=== PATIENT | male | born 1970 | race African-American/Black ===

== ENCOUNTER 2019-06-24 01:26 | Inpatient (IN) | payer OTHER | END 2019-06-29 18:46 | disposition home or self-care (01) | LOC: ER 01:26 → CENTRAL 06-27 17:58 → TELE 01:27 → TELE-CENTR 23:54 | DX: L03.116 Cellulitis of left lower limb (principal); E11.65 Type 2 diabetes mellitus with hyperglycemia; I89.0 Lymphedema, not elsewhere classified; I10 Essential (primary) hypertension; L97.909 Non-pressure chronic ulcer of unspecified part of unspecified lower leg with unspecified severity; E66.01 Morbid (severe) obesity due to excess calories; E66.9 Obesity, unspecified ==